=== PATIENT | female | born 1955 | race Caucasian/White ===

== ENCOUNTER 2017-02-24 14:32 | Observation (INO) | payer MEDICARE ==
[~2017-02-24] VITALS: Ht 167.6 cm; Wt 111.0 kg
[~2017-02-24 14:32] MED LIST: BENA5TAB2 PO; BENZ1TAB61 PO; CARB200T4 PO; CLON0.5T PO; FLUO20CA19 PO; FLUO20CA8 PO; FURO-92 PO; GABA100C8 PO; GABA300C10 PO; LAMO25TA5 PO; LEVO88TA4 PO; QUET25TA5 PO; QUET400T4 PO; QUET50TA5 PO; SERT50TA PO; TIOT18CA INH; TRAZ100T15 PO; TRAZ50TA18 PO; ZIPR20CA2 PO; ZIPR40CA2 PO; ZOLP5TAB6 PO
[2017-02-24] MEDS ORDERED: POTA10TA12 PO (14:54)
[2017-02-24] MEDS ORDERED: HALO2TAB PO (14:54)
[2017-02-24] MEDS ORDERED: CLON-364 PO (14:54)
[2017-02-24] MEDS ORDERED: ALPR1TAB6 PO (14:54)
[2017-02-24] MEDS ORDERED: BREX2TAB PO (14:54)
[2017-02-24 15:21] LABS: BLOOD UREA NITROGEN 9 mg/dL (7-18)
[2017-02-24 15:23] LABS: ACETAMINOPHEN < 2 mcg/mL (10-30)
[2017-02-24] MEDS ORDERED: NICOTINE 21 MG/24 HR PATCH.TD24 ONE (15:54)
[2017-02-24] MEDS ORDERED: NICOTINE 21 MG/24 HR PATCH.TD24 TD ONE (17:00)
[2017-02-24 18:09] LABS: DAU SCREEN DISCLAIMER
[2017-02-24] MEDS ORDERED: ALPRazolam 1MG TABLET PO PRN (19:00)
[2017-02-24] MEDS ORDERED: ZIPRASIDONE 20MG CAPSULE PO PRN (19:00)
[2017-02-24] MEDS ORDERED: ACETAMINOPHEN 325 MG TABLET PO PRN (19:00)
[2017-02-24] MEDS ORDERED: BREXPIPRAZOLE 2 MG PO SCH (19:00)
[2017-02-24] MEDS ORDERED: ONDANSETRON ODT 4 MG PO PRN (19:00)
[2017-02-24 20:20] VITALS: BP 125/77
[2017-02-24] MEDS: BENZTROPINE 1 MG TABLET PO SCH (21:00)
[2017-02-24] MEDS: GABAPENTIN 300 MG CAPSULE PO SCH (21:00)
[2017-02-24] MEDS ORDERED: QUETIAPINE 200 MG TABLET PO SCH (21:00)
[2017-02-24] MEDS: HALOPERIDOL 5 MG TABLET PO SCH (21:01)
[2017-02-24] MEDS: CARBAMAZEPINE 200 MG TABLET PO SCH (21:01)
[2017-02-25 07:50] VITALS: BP 142/90
[2017-02-25] MEDS: HALOPERIDOL 5 MG TABLET PO SCH (08:38)
[2017-02-25] MEDS: CARBAMAZEPINE 200 MG TABLET PO SCH (08:39)
[2017-02-25] MEDS: GABAPENTIN 300 MG CAPSULE PO SCH ×2 (08:42→15:38)
[2017-02-25] MEDS: BENZTROPINE 1 MG TABLET PO SCH (08:42)
[2017-02-25] MEDS ORDERED: FUROSEMIDE 40 MG TABLET PO SCH (09:00)
[2017-02-25] MEDS ORDERED: SERTRALINE 50MG TABLET PO SCH (09:00)
[2017-02-25] MEDS ORDERED: BENAZEPRIL 5 MG TABLET PO SCH (09:00)
[2017-02-25] MEDS ORDERED: LEVOTHYROXINE 88 MCG TABLET PO SCH (09:00)
[2017-02-25] MEDS ORDERED: POTASSIUM CHLORIDE 10 MEQ TABLET.ER PO SCH (09:00)
[2017-02-25] MEDS ORDERED: NICOTINE 21 MG/24 HR PATCH.TD24 ONE (15:27)
[2017-02-25] MEDS ORDERED: NICOTINE 21 MG/24 HR PATCH.TD24 TD ONE (16:00)
== END 2017-02-25 17:08 ==
LOC: ED 18:14 → EDIP 18:15 → INTOOBSV 18:15 → ED 18:25 → 3E 19:13
PROVIDERS: ADMIT Hospitalist; ATTEND Hospitalist
DX: R45.851 Suicidal ideations (principal); F31.9 Bipolar disorder, unspecified; J44.9 Chronic obstructive pulmonary disease, unspecified; E03.9 Hypothyroidism, unspecified; I10 Essential (primary) hypertension; F41.1 Generalized anxiety disorder; F10.129 Alcohol abuse with intoxication, unspecified; Z91.19 Patient's noncompliance with other medical treatment and regimen; Z91.5 Personal history of self-harm; Z98.890 Other specified postprocedural states
CPT/HCPCS: 36415; 80048; 80307; 80329; 82040; 84439; 84443; 85025; 99285; G0378; G0480

== ENCOUNTER 2017-10-31 02:07 | Emergency (ER) | payer MEDICARE ==
[~2017-10-31] VITALS: Ht 170.2 cm; Wt 110.0 kg
[~2017-10-31 02:07] MED LIST changes: +ALPR1TAB6 PO; +BREX2TAB PO; +CLON-364 PO; +GABA-826 PO; -GABA100C8 PO; +HALO2TAB PO; +POTA10TA12 PO
[2017-10-31] MEDS ORDERED: DIPH,PERTUSS(ACELL),TET VAC/PF 0.5 ML IM-VACC ONE ×2 (02:30→03:29)
[2017-10-31] MEDS ORDERED: L.E.T SOLUTION TP ONE ×2 (02:30)
[2017-10-31] MEDS ORDERED: ACETAMINOPHEN 325 MG TABLET ONE (03:42)
[2017-10-31] MEDS ORDERED: ACETAMINOPHEN 325 MG TABLET PO ONE (04:00)
[2017-10-31 04:24] VITALS: BP 140/92
== END 2017-10-31 04:26 | disposition home or self-care (01) ==
LOC: ED 03:05
DX: S01.01XA Laceration without foreign body of scalp, initial encounter (principal); W19.XXXA Unspecified fall, initial encounter; Y93.89 Activity, other specified; Y92.009 Unspecified place in unspecified non-institutional (private) residence as the place of occurrence of the external cause; Y99.9 Unspecified external cause status
CPT/HCPCS: 12031; 70450; 90471; 90715; 93005; 99284

== ENCOUNTER 2019-07-24 11:33 | Emergency (ER) | payer MEDICARE ==
[~2019-07-24] VITALS: Ht 165.1 cm; Wt 120.0 kg
[~2019-07-24 11:33] MED LIST changes: -BENA5TAB2 PO; +BENA5TAB3 PO; -CLON-364 PO; +CLON0.5T11 PO; +TRAZ-137 PO; -TRAZ100T15 PO; -TRAZ50TA18 PO; +TRAZ50TA66 PO; +metformin PO
--- NOTE | 2019-07-24 11:50 | NUR ---
PT ABIOLA FARR, PER EMS REPORT PT WENT TO PCP TODAY AND STATES SHE HAD INTENT TO GO HOME AND TAKE ALL HER PILLS TO COMMIT SUICIDE. PCP PLACED PT ON LEGAL 200. 911/EMS WAS CALLED, PT WAS UNCOOPERATIVE AND COMBATIVE REQUIRING RESTRAINTS. PT ARRIVED IN 4 PT RESTRAINTS. ON ARRIVAL PT ENDORSING WANTING TO LEAVE, PT WITH FLIGHT OF IDEAS, NOT ANSWERING QUIESTIONS APPROPRIATELY, FIXATED ON THE FACT THAT SHE WAS TOLD SHE STINKS AND SHE NEEDS TO WASH HER CLOTHES. SECURITY CALLED AND PT TRANSFERED TO [facility] AND LEATHER RESTRAINTS APPLIED. OPTOMETRIST/PRACTICE OWNER AWARE. ERMD AWARE, IN TO EVAL PT. ORDERS FOR MEDICATIONS RECIEVED APS SONA PRESENT ON PT ARRIVAL.
[2019-07-24] MEDS ORDERED: HALOPERIDOL 5 MG/ML IM ONE (12:00)
[2019-07-24 12:01] VITALS: BP 107/38
[2019-07-24] MEDS ORDERED: HALOPERIDOL 5 MG/ML ONE ×2 (12:07→15:40)
[2019-07-24 12:19] LABS: BASOPHILS # (AUTO) 0.11 x10^3/uL (0-0.1); BASOPHILS % (AUTO) 2 % (0-1); EOSINOPHILS # (AUTO) 0.77 x10^3/uL (0-0.4); EOSINOPHILS % (AUTO) 13 % (1-7); LYMPHOCYTES # (AUTO) 1.63 x10^3/uL (1-3.4); LYMPHOCYTES % (AUTO) 26 % (22-44); MD NO; MEAN CORPUSCULAR HGB CONC 32.6 g/dL (32.4-35.8); MEAN CORPUSCULAR VOLUME 85.8 fL (80-100); MEAN PLATELET VOLUME 8.5 fL (7.4-10.4); MONOCYTES # (AUTO) 0.55 x10^3/uL (0.2-0.8); MONOCYTES % (AUTO) 9 % (2-9); NEUTROPHILS # (AUTO) 3.12 x10^3/uL (1.8-6.8); NEUTROPHILS % (AUTO) 51 % (42-75); PLATELET COUNT 269 x10^3/uL (130-400); RED BLOOD COUNT 4.53 x10^6/uL (3.82-5.3); RED CELL DISTRIBUTION WIDTH 15.2 % (9.6-15.2)
--- NOTE | 2019-07-24 12:28 | NUR ---
PT MEDICATED PER NOV. BELONGING SECURED IN LOCKER, RM SECURED, SITTER PRESENT, ALL SI PRECAUTIONS ARE IN PLACE
[2019-07-24 12:30] LABS: ALBUMIN 3.2 g/dL (3.4-5.0); ANION GAP 6 mmol/L (5-15); CALCIUM 8.6 mg/dL (8.5-10.1); CHLORIDE 100 mmol/L (98-107)
[2019-07-24 12:35] LABS: ALANINE AMINOTRANSFERASE 11 U/L (12-78); ALKALINE PHOSPHATASE 77 U/L (45-117); BILIRUBIN,TOTAL 0.3 mg/dL (0.2-1.0); CREATININE 0.78 mg/dL (0.55-1.02); TOTAL PROTEIN 7.3 g/dL (6.4-8.2)
[2019-07-24 12:38] LABS: SALICYLATE LEVEL < 1.7 mg/dL (2.8-20.0)
--- NOTE | 2019-07-24 12:42 | NUR ---
RESTRAINTS JAMES, UPDATED. SITTER REMAINS IN PLACE
--- NOTE | 2019-07-24 12:55 | NUR ---
PT AMBULATORY TO [place] [facility], GAIT STEADY. SCANT AMOUNT OF URINE PROVIDED; WILL WALK SPECIMEN TO LAB. PT INSISTING THAT SHE'S GOING TO LEAVE; "YOU CAN'T KEEP ME HERE, IT'S ILLEGAL" ASSISTED BACK TO ROOM PER ADMITTING COORDINATOR & THIS RN. PT INSISTING ON HAVING HER OWN OXYGEN TANK. INFORMED PT THAT HER TANK IS IN SAFE KEEPING & HER NASAL CANNULA IS ATTACHED TO THE HOSPITAL O2 SUPPLY. SITTER OUTSIDE ROOM.
--- NOTE | 2019-07-24 13:26 | NUR ---
LUNCH TRAY ORDERED.
--- NOTE | 2019-07-24 13:48 | NUR ---
PT CALM SLEEPING ON GURNEY AT THIS TIME, NAD NOTED, SITTER REMAINS IN PLACE
[2019-07-24 13:53] LABS: AMPHETAMINE SCREEN, URINE Negative (Negative); BARBITURATE SCREEN, URINE Negative (Negative); BENZODIAZEPINE SCREEN, URINE Positive (Negative); CANNABINOID SCREEN, URINE Negative (Negative); COCAINE SCREEN, URINE Negative (Negative); METHADONE SCREEN, URINE Negative (Negative); OPIATE SCREEN, URINE Negative (Negative)
--- NOTE | 2019-07-24 15:22 | NUR ---
PT CONTINUES TO REST ON PATRICIA, AWAITING 3E EVAL OF PT. NAD NOTED. SITTER REMAINS IN PLACE
--- NOTE | 2019-07-24 15:46 | NUR ---
PT FOUND BANGING ON DOOR, YELLING SHE WANTS TO GO HOME. SECURITY CALLED TO HELP KEEP PT IN RM. ORDERS RECIEVED FOR PRN MEDICATION. PT MEDICATED PER NOV. PT GIVEN FOOD TRAY AND WATER. PT NOW SITTING ON [facility]
[2019-07-24] MEDS ORDERED: HALOPERIDOL 5 MG/ML IM PRN (16:00)
--- NOTE | 2019-07-24 17:20 | NUR ---
PT CURRENTLY SLEEPING ON GURNEY S/P HALDOL ADMIN, VISIBLE CHEST RISE AND FALL NOTED, SITTER IN PLACE, NAD NOTED.
--- NOTE | 2019-07-24 18:05 | NUR ---
REPORT TO DANA NGUYEN, PT TAKEN TO 3E. BELONGINGS VERIFIED ON TRANSFER
[2019-07-25] MEDS ORDERED: DOXE50CA PO (07:49)
[2019-07-25] MEDS ORDERED: BUPR150T8 PO (07:49)
[2019-07-25] MEDS ORDERED: SERT-179 PO (07:49)
[2019-07-25] MEDS ORDERED: HYDR50CA2 PO (07:49)
[2019-07-25] MEDS ORDERED: ALPR2TAB2 PO (07:49)
[2019-07-25] MEDS ORDERED: FURO20TA3 PO (13:46)
== END 2019-07-24 18:07 ==
LOC: ED 14:52
DX: R45.851 Suicidal ideations (principal); I10 Essential (primary) hypertension; E03.9 Hypothyroidism, unspecified; F31.9 Bipolar disorder, unspecified; F41.1 Generalized anxiety disorder; J44.9 Chronic obstructive pulmonary disease, unspecified; Z87.891 Personal history of nicotine dependence
CPT/HCPCS: 36415; 80053; 80307; 85025; 96372; 99285; J1630

== ENCOUNTER 2019-12-10 14:52 | Emergency (ER) | payer MEDICARE ==
[~2019-12-10] VITALS: Ht 162.6 cm; Wt 106.7 kg
[~2019-12-10 14:52] MED LIST changes: +ALPR2TAB2 PO; +BUPR150T8 PO; +CLON-364 PO; -CLON0.5T11 PO; +DOXE50CA PO; +FLUO20CA23 PO; -FLUO20CA8 PO; +FURO20TA3 PO; +HYDR50CA2 PO; +SERT-238 PO; -TRAZ-137 PO; +TRAZ-175 PO
--- NOTE | 2019-12-10 15:21 | NUR ---
Pt not cooperatign with staff. refusing to get into bed and wanting to know where romel is to see if she is mad. Pt instructed to please remain in bed for safety until she feels better. Pt redirecting rn from questions. Pt attemtping to manipulate RNS for needs. Pt informed of expected behaviors and limitations.
[2019-12-10] MEDS ORDERED: ZIPRASIDONE 20 MG INJ IM ONE ×4 (15:28→21:31)
[2019-12-10] MEDS ORDERED: LORazepam 2 MG/ML, 1ML ONE (15:29)
[2019-12-10] MEDS ORDERED: LORazepam 2 MG/ML, 1ML IM ONE (15:30)
--- NOTE | 2019-12-10 15:34 | NUR ---
PT GOT OUT OF BED AND TRIED TO LEAVE THE FACILITY. ESCORTED BACK TO ROOM BY SECURITY. MEDICATED PER EMAR. PT IS RESTRAINTED. NOT COOPERATIVE.
--- NOTE | 2019-12-10 15:35 | NUR ---
LAB IN ROOM.
--- NOTE | 2019-12-10 15:36 | NUR ---
Pt attempted to run away, MD Castrejon held patient, pt taken back to room. Pt placed in 2 point restraint per md order. Security at bedside assisting.
[2019-12-10 15:57] LABS: ALANINE AMINOTRANSFERASE 16 U/L (12-78); ALBUMIN 2.7 g/dL (3.4-5.0); ANION GAP 8 mmol/L (5-15); CALCIUM 8.3 mg/dL (8.5-10.1); CHLORIDE 101 mmol/L (98-107); CREATININE 0.93 mg/dL (0.55-1.02)
[2019-12-10 15:59] LABS: SALICYLATE LEVEL < 1.7 mg/dL (2.8-20.0)
[2019-12-10 16:06] LABS: ALKALINE PHOSPHATASE 77 U/L (45-117); BILIRUBIN,TOTAL 0.3 mg/dL (0.2-1.0); TOTAL PROTEIN 6.7 g/dL (6.4-8.2)
--- NOTE | 2019-12-10 16:11 | NUR ---
FLOOR HAND IN ROOM.
[2019-12-10 16:13] LABS: MEAN CORPUSCULAR HEMOGLOBIN 27.5 pg (27.0-34.8); MEAN CORPUSCULAR HGB CONC 32.7 g/dL (32.4-35.8); MEAN PLATELET VOLUME 9.3 fL (7.4-10.4); PLATELET COUNT 275 x10^3/uL (130-400); RED BLOOD COUNT 4.13 x10^6/uL (3.82-5.3); RED CELL DISTRIBUTION WIDTH 15.9 % (9.6-15.2)
[2019-12-10 16:29] LABS: FREE T4 (FREE THYROXINE) 1.62 ng/dL (0.76-1.46)
[2019-12-10] MEDS ORDERED: HYDROXYZINE PAMOATE 50MG CAP PO PRN (16:30)
--- NOTE | 2019-12-10 16:31 | NUR ---
REPORT TO JAMES NGUYEN.
[2019-12-10 16:35] VITALS: BP 128/72
--- NOTE | 2019-12-10 16:46 | NUR ---
Bedside report received from Krystle RN, pt care transferred to Rob NGUYEN and Amada RN at this time. Pt moved rooms via gurney, pt restraints removed for trial, NAD, denies additional needs at this time. Room secured, [facility].
--- NOTE | 2019-12-10 17:01 | NUR ---
Pt resting in gurney in suicide secured room, pt changed into gown & all belongings secured in 1 bag in locker, sitter at doorway in full view of pt, dinner meal tray ordered, no other needs at this time, WCTM.
[2019-12-10 17:12] LABS: MD YES
[2019-12-10 17:44] LABS: <RBC MORPHOLOGY> NORMAL; BASOS#(MANUAL) 0.08 x10^3/uL (0-0.1); BASOS% (MANUAL) 1 % (0-1); EOS#(MANUAL) 0.76 x10^3/uL (0.0-0.4); EOS% (MANUAL) 10 % (1-7); LYMPH#(MANUAL) 1.67 x10^3/uL (1-3.4); LYMPHS% (MANUAL) 22 % (22-44); MONOS#(MANUAL) 0.76 x10^3/uL (0.3-2.7); MONOS% (MANUAL) 10 % (2-9); REACTIVE LYMPHS # (MANUAL) 0.15 x10^3/uL (0-0); REACTIVE LYMPHS % (MANUAL) 2 % (0-0); SEG#(MANUAL) 4.18 x10^3/uL (1.8-6.8); SEGS% (MANUAL) 55 % (42-75)
[2019-12-10 17:45] LABS: <PLATELET ESTIMATE> ADEQUATE; <PLT MORPHOLOGY> NORMAL PLT MORPH
--- NOTE | 2019-12-10 17:54 | NUR ---
Pt sitting up in gurney, denies additional needs, even and unlabored respirations, NAD, eating meal tray, WCTM.
[2019-12-10 18:14] LABS: MICROSCOPIC NOT IND
[2019-12-10 18:15] LABS: CULTURE INDICATED? NO
[2019-12-10 18:23] LABS: AMPHETAMINE SCREEN, URINE Negative (Negative); BARBITURATE SCREEN, URINE Negative (Negative); BENZODIAZEPINE SCREEN, URINE Positive (Negative); CANNABINOID SCREEN, URINE Negative (Negative); COCAINE SCREEN, URINE Negative (Negative); METHADONE SCREEN, URINE Negative (Negative); OPIATE SCREEN, URINE Positive (Negative)
--- NOTE | 2019-12-10 18:58 | NUR ---
Assumed care of pt at this time. Pt sleeping. Pt remains in view of sitter.
--- NOTE | 2019-12-10 19:17 | NUR ---
Pt awake. Pt asking where she is. Pt asking when she can go home. Pt telling nurse that she remebers yelling at a lady in her dream. Pt reoriented.
[2019-12-10] MEDS ORDERED: hydrOXyzine 50MG TABLET ONE (20:01)
--- NOTE | 2019-12-10 20:05 | NUR ---
Pt making repeated verbal statements of wanting to go home. RN and sitter at bedside multiple times to try and redirect pt. Pt unable to be redirected. Pt given PRN vistaril.
--- NOTE | 2019-12-10 20:43 | NUR ---
Pt up and in the hallway demanding to go home. Pt required multiple times to be redirected back to room. Pt sat on toliet but was unable to voud. at bedside with new order for marli FAUSTINN. Pt given xanax PRN. Warm blankets provided. Fresh gown provided. water restoration technician at bedside for EKG. Pt remains in view of sitter.
--- NOTE | 2019-12-10 20:43 | NUR ---
PER 3E THEY ARE UNABLE TO GET INSURANCE AUTHORIZATION AT THIS TIME AND STATE TO FAX THE PACKET TO ALL OTHER FACILITIES. PACKET FAXED TO [facility], , [facility], [facility], AND [facility] PATIENT HAS PROMINENCE INSURANCE.
[2019-12-10] MEDS ORDERED: DOXEPIN 25 MG CAPSULE PO SCH (21:00)
[2019-12-10] MEDS ORDERED: BENZTROPINE 1 MG TABLET PO SCH (21:00)
[2019-12-10] MEDS ORDERED: ALPRazolam 1MG TAB PO SCH (21:00)
[2019-12-10] MEDS ORDERED: GABAPENTIN 100 MG CAPSULE PO SCH (21:00)
[2019-12-10] MEDS ORDERED: CARBAMAZEPINE 200 MG TABLET PO SCH (21:00)
--- NOTE | 2019-12-10 21:24 | NUR ---
Spoke to RN at [facility]. RN states she is going to ask MD if they can accept pt. Pt currently resting on [employer]. Pt ate sandwich and drank water. Pt remains in view of sitter.
--- NOTE | 2019-12-10 21:42 | NUR ---
Pt made two more attempts to leave. Pt unable to be redirected. PRN yosefdon given. Pt requested ice water. Ice water given. Pt reports nausea, pt given emesis bag and then told RN "that's your bag". Pt's linens straightened out. Pt back on [facility]. Pt remains in view of sitter.
--- NOTE | 2019-12-10 22:31 | NUR ---
Pt sleeping on [facility]. Spoke to RN at [facility]. [facility] is accepting. Accepting MD Dr. Mello
--- NOTE | 2019-12-10 22:41 | NUR ---
Patient accepted by Dr. Mello and PATRICK Lei at [facility]. No need for MTM as patient has [employer]. [facility] contacted and tentitive ETA is [phone].
--- NOTE | 2019-12-10 22:57 | NUR ---
Pt made another attempt to leave ER. Pt redirected. Pt given chance to sit on toliet. Pt unable to void. Pt back in bed. Warm blanket provided.
--- NOTE | 2019-12-10 23:14 | NUR ---
Report given to ELECTRICITY TRADING ANALYST at bedside. Pt ambulatory to [facility].
[2019-12-11] MEDS ORDERED: BUPROPION SR 150 MG TABLET PO SCH (09:00)
[2019-12-11] MEDS ORDERED: SERTRALINE 100MG TABLET PO SCH (09:00)
[2019-12-11] MEDS ORDERED: FUROSEMIDE 20 MG TABLET PO SCH (09:00)
== END 2019-12-10 23:28 ==
LOC: ED 19:05
DX: F31.9 Bipolar disorder, unspecified (principal); I11.0 Hypertensive heart disease with heart failure; I50.9 Heart failure, unspecified; E03.9 Hypothyroidism, unspecified; J44.9 Chronic obstructive pulmonary disease, unspecified; Z87.891 Personal history of nicotine dependence
CPT/HCPCS: 36415; 80053; 80307; 81003; 84439; 84443; 84481; 85025; 93005; 96372; 99285; J2060; J3486